=== PATIENT | male | born 1955 | race Two or more races ===

== ENCOUNTER 2016-04-18 10:10 | Emergency (ER) | payer OTHER ==
[2016-04-18 10:17] VITALS: BP 153/81; PULSE 75; TEMP 97.4; BMI 25.8
--- NOTE | 2016-04-18 11:32 | PDOC ---
History of Present Illness - General Chief Complaint: Cold Symptoms Stated Complaint: FLU, COUGH Time Seen by Provider: 04/18/16 11:17 History Source: Patient Exam Limitations: No Limitations - History of Present Illness Initial Comments: CHIEF COMPLAINT: 61 y/o afebrile male with PMH HTN, HLD c/o fever and body aches. HISTORY OF PRESENT ILLNESS: The patient states his symptoms started last night. He has a dry cough, nasal congestion, fever of 100.3 and chills, body aches. He states he vomited 1x this morning but has since eaten without vomiting. He denies TEJADA, neck pain, earache, sore throat, CP, SOB, abd pain, back pain, hematuria, dysuria. He took tylenol and robitussin for his symptoms yesterday. Unsure if he had the flu shot. Vital signs on arrival are within normal limits. REVIEW OF SYSTEMS: GENERAL/CONSTITUTIONAL: + fever/chills. +body aches. No weakness. No weight change. HEAD, EYES, EARS, NOSE AND THROAT: No change in vision. No ear pain or discharge. No sore throat. +nasal congestion CARDIOVASCULAR: No chest pain or shortness of breath. RESPIRATORY: +dry cough. No wheezing, or hemoptysis. GASTROINTESTINAL: 1 episode of vomiting. No nausea, diarrhea, abd pain. GENITOURINARY: No dysuria, frequency, or change in urination. MUSCULOSKELETAL: No joint or muscle swelling or pain. No neck or back pain. SKIN: No rash or easy bruising. NEUROLOGIC: No headache, vertigo, loss of consciousness, or loss of sensation. PHYSICAL EXAM: GENERAL: The patient is awake, alert, and fully oriented, in no acute distress. He is well appearing and ambulatory. Intermittent dry cough. HEAD: Normal with no signs of trauma. No TTP of sinuses. ENT: Pupils equal, round and reactive to light, extraocular movements intact, sclera anicteric, conjunctiva clear. Neck supple. Nasal congestion. Mucous membranes moist. LUNGS: Clear to auscultation bilaterally. Normal excursion. No respiratory distress or use of accessory muscles. CV: RRR, S1/S2, no MRG. Cap refill < 2 sec. ABDOMEN: Soft, non-distended, non-tender even to deep palpation, no hepatomegaly or splenomegaly, no masses. EXTREMITIES: Normal range of motion, no edema. NEUROLOGICAL: Normal speech, normal gait. CN II-XII grossly intact. PSYCH: Normal mood, normal affect. SKIN: Warm, dry, normal turgor, no rashes or lesions noted. Past History - Past Medical History Allergies/Adverse Reactions: Allergies Allergy/AdvReac Type Severity Reaction Status Date / Time No Known Allergies Allergy Verified 04/18/16 10:13 Home Medications: Ambulatory Orders Unobtainable [Unobtainable] 04/18/16 HTN: Yes Hypercholesterolemia: Yes - Psycho/Social/Smoking Cessation Hx Anxiety: No Suicidal Ideation: No Smoking History: Never smoked Have you smoked in the past 12 months: No Information on smoking cessation initiated: No Hx Alcohol Use: No Drug/Substance Use Hx: No Substance Use Type: None *Physical Exam - Vital Signs Last Vital Signs Temp Pulse Resp BP Pulse Ox 97.4 F L 75 18 153/81 100 04/18/16 10:14 04/18/16 10:14 04/18/16 10:14 04/18/16 10:14 04/18/16 10:14 Medical Decision Making - Medical Decision Making A/P: 61 y/o male with flu like symptoms. Plan is as follows: 1. INfluenza swab Influenza A&B - negative Informed the patient of the diagnosis of viral URI. Suggested he take tylenol every 4 hours for fever, drink plenty of fluids and get lots of rest, take robitussin for cough, eat a bland diet until symptoms improve and f/u with his PCP on Thursday. Suggested he return to the ER with any worsening or concerning symptoms The patient verbalizes understanding of all instructions, has no further questions and is awaiting discharge. *DC/Admit/Observation/Transfer Diagnosis at time of Disposition: Viral URI with cough - Discharge Dispostion Disposition: HOME Condition at time of disposition: Good - Referrals Referrals: Rose Aparicio [Primary Care Provider] - Call tomorrow - Patient Instructions Printed Discharge Instructions: DI for Viral Upper Respiratory Infection -- Adult, [place] Diet Additional Instructions: Discharge Instructions: -Take 650mg of Tylenol every 4 hours for fever -Take Robitussin for cough -Drink plenty of liquids and get lots of rest -Follow up with your doctor on Thursday -Return to the ER with any worsening or concerning symptoms Print Language: ECUADOREAN
== END 2016-04-18 12:14 | disposition home or self-care (01) ==
LOC: JERFT 10:10
DX: J06.9 Acute upper respiratory infection, unspecified (principal); R05 Cough; I10 Essential (primary) hypertension; E78.00 Pure hypercholesterolemia, unspecified
CPT/HCPCS: 87804; 99281-25

== ENCOUNTER 2016-09-18 09:29 | Observation (INO) | payer OTHER ==
--- NOTE | 2016-09-18 09:47 | PDOC ---
History of Present Illness - General History Source: Patient Exam Limitations: No Limitations - History of Present Illness Initial Comments: 09/18/16 10:12 The patient is a 61 year old, Croatian speaking, male with a significant past medical history of hypertension, and hyperlipidemia, presenting to the Emergency Department with intermittent chest pain for three days. The patient describes the pain as a burning in his chest, under his sternum, and states that it is nonradiating. The pain is not exacerbated by exertion, or meals, and the pain has no alleviating factors. He reports that he has experiencing this type of pain once before, and wore a machine to track his heart for one week, results were normal. The patient has not had a stress test. The patient denies history of heart problems. Patient diaphoresis, palpitations , and shortness of breath. Patient denies nausea, vomiting, and diarrhea. Patient denies fever, cough, and chills. PCP: Dr. Rose Spann ? <Carrol Menchaca - Last Filed: 09/18/16 12:05> <Sofi Mueller - Last Filed: 09/18/16 12:43> - General Chief Complaint: Chest Pain Stated Complaint: CHEST PAIN Time Seen by Provider: 09/18/16 09:47 Past History <Carrol Menchaca - Last Filed: 09/18/16 12:05> - Past Medical History HTN: Yes Hypercholesterolemia: Yes - Psycho/Social/Smoking Cessation Hx Anxiety: No Suicidal Ideation: No Smoking History: Never smoked Have you smoked in the past 12 months: No Information on smoking cessation initiated: No Hx Alcohol Use: No Drug/Substance Use Hx: No Substance Use Type: None <Sofi Mueller - Last Filed: 09/18/16 12:43> - Past Medical History Allergies/Adverse Reactions: Allergies Allergy/AdvReac Type Severity Reaction Status Date / Time No Known Allergies Allergy Verified 09/18/16 09:38 Home Medications: Ambulatory Orders Unobtainable [Unobtainable] 04/18/16 Review of Systems - Review of Systems Able to Perform ROS?: Yes Comments:: 09/18/16 10:13 CONSTITUTIONAL: Absent: fever, no chills, no fatigue EYES: Absent: visual changes ENT: Absent: ear pain, no sore throat CARDIOVASCULAR: Present: + nonradiating chest pain Absent: no palpitations RESPIRATORY: Absent: cough, no SOB GI: Absent: abdominal pain, no nausea, no vomiting, no constipation, no diarrhea GENITOURINARY: Absent: dysuria, no frequency, no hematuria MUSCULOSKELETAL: Absent: back pain, no arthralgia, no myalgia SKIN: Absent: rash NEURO: Absent: headache <Carrol Menchaca - Last Filed: 09/18/16 12:05> *Physical Exam - Vital Signs Last Vital Signs Temp Pulse Resp BP Pulse Ox 98.1 F 64 18 161/97 99 09/18/16 09:33 09/18/16 09:33 09/18/16 09:33 09/18/16 09:33 09/18/16 09:33 - Physical Exam Comments: 09/18/16 10:14 GENERAL: Well-appearing, well-nourished. No apparent distress. HEENT: Normocephalic, atraumatic. PERRL, EOM intact. CARDIOVASCULAR: Normal S1, S2. Regular rate and rhythm. PULMONARY: Clear to auscultation bilaterally. ABDOMEN: Soft, non-distended, non-tender. EXTREMITIES: Normal ROM in all four extremities. No gross deformities. SKIN: Warm, dry. No rash NEUROLOGICAL: No focal neurological deficits. <Carrol Menchaca - Last Filed: 09/18/16 12:05> - Vital Signs Last Vital Signs Temp Pulse Resp BP Pulse Ox 98.1 F 64 18 161/97 99 09/18/16 09:33 09/18/16 09:33 09/18/16 09:33 09/18/16 09:33 09/18/16 09:33 <Sofi Mueller - Last Filed: 09/18/16 12:43> Heart Score/ECG Review - History History: Slightly suspicious - Electrocardiogram EKG: Normal - Age Age: >/= 65 - Risk Factors Risk Factors Heart Score: Yes Hx Hypercholesterolemia, Yes Hx Hypertension Based on the list above the patient has:: 1-2 risk factors - Troponin Troponin: </= normal limit - Score Heart Score - Total: 3 <Sofi Mueller - Last Filed: 09/18/16 12:43> ED Treatment Course - LABORATORY CBC & Chemistry Diagram: 09/18/16 10:25 09/18/16 10:25 - RADIOLOGY Radiograph Interpretation: 09/18/16 12:05 Chest XRay As reviewed by Dr. Quang Arora IMPRESSION: No evidence of active pulmonary disease. <Carrol Menchaca - Last Filed: 09/18/16 12:05> - LABORATORY CBC & Chemistry Diagram: 09/18/16 10:25 09/18/16 10:25 <Sofi Mueller - Last Filed: 09/18/16 12:43> Medical Decision Making - Medical Decision Making 09/18/16 10:28 Pt presents to the ED complaining of three days of intermittent chest pain. Patient has multiple risk factors for cardiovascular disease. EKG shows no evidence of ischemia, but given multiple risk factors, will likely admit the patient to observation for serial cardiac enzymes. <Sofi Mueller - Last Filed: 09/18/16 12:43> *DC/Admit/Observation/Transfer - Attestations Scribe Attestion: 09/18/16 10:14 Documentation prepared by Carrol Menchaca, acting as medical pathology teacher for Sofi Mueller MD. <Carrol Menchaca - Last Filed: 09/18/16 12:05> - Discharge Dispostion Admit: Yes Decision to Admit order Date/Time: 09/18/16 12:43 <Sofi Mueller - Last Filed: 09/18/16 12:43> Diagnosis at time of Disposition: Chest pain Qualifiers: Chest pain type: other chest pain Qualified Code(s): R07.89 - Other chest pain ; R07.8 - Other chest pain - Discharge Dispostion Condition at time of disposition: Good
[2016-09-18] MEDS ORDERED: ASPIRIN 81 MG CHEWABLE TABLETS PO ONE (10:03)
[2016-09-18 10:47] LABS: BASOPHIL 0.5 % (0-2.0); EOSINOPHIL 5.4 % (0-4.5); MCH 27.3 pg (25.7-33.7); MEAN CELL VOLUME 82.7 fl (80-96); MEAN PLT VOLUME 7.2 fl (7.5-11.1); NEUTROPHILS 37.3 % (42.8-82.8); PLATELET COUNT 194 K/MM3 (134-434); WHITE BLOOD COUNT 5.4 K/mm3 (4.0-10.0)
[2016-09-18 11:37] LABS: ANION GAP 7 (8-16); CALCIUM 8.9 mg/dL (8.5-10.1); CO2 29 mmol/L (21-32); COCKROFT - GAULT 91.24; CREATININE 0.9 mg/dL (0.7-1.3); GLUCOSE,RANDOM 85 mg/dL (74-106); TOT PROT 7.9 g/dl (6.4-8.2)
[2016-09-18 11:38] LABS: ALBUMIN 3.6 g/dl (3.4-5.0); ALK PHOS 123 U/L (45-117); BILIRUBIN,TOTAL 0.6 mg/dL (0.2-1.0); SGOT/AST 23 U/L (15-37); SGPT/ALT 28 U/L (12-78); TROPONIN I < 0.02 ng/ml (0.00-0.05)
--- NOTE | 2016-09-18 14:03 | HP ---
Admitting History and Physical - Admission Chief Complaint: chest pain History of Present Illness: 61 year old male PMHx HTN, HLD, gout, heartburn was in his normal state of health until about 3 days ago when he experienced substernal chest pressure. Chest pain did not radiate, was intermittent, happened at rest, no association with food. No SOB, palpitations, n/v/d, diaphoresis. Had holter years ago, never had stress test. Was taken off statin by pcp months ago. History Source: Patient Limitations to Obtaining History: No Limitations - Past Medical History Cardiovascular: Yes: HTN, Hyperlipdemia Rheumatology: Yes: Gout - Past Surgical History Past Surgical History: Yes: None - Smoking History Smoking history: Never smoked Have you smoked in the past 12 months: No - Alcohol/Substance Use Hx Alcohol Use: No History of Substance Use: reports: None - Social History Usual Living Arrangement: Yes: Alone ADL: Independent History of Recent Travel: No Home Medications - Allergies Allergies/Adverse Reactions: Allergies Allergy/AdvReac Type Severity Reaction Status Date / Time No Known Allergies Allergy Verified 09/18/16 09:38 - Home Medications Home Medications: Ambulatory Orders Unobtainable [Unobtainable] 04/18/16 Family Disease History - Family Disease History Family History: Denies Review of Systems - Review of Systems Constitutional: reports: No Symptoms Eyes: reports: No Symptoms HENT: reports: No Symptoms Neck: reports: No Symptoms Cardiovascular: reports: Chest Pain Respiratory: reports: No Symptoms Gastrointestinal: reports: No Symptoms Genitourinary: reports: No Symptoms Breasts: reports: No Symptoms Reported Musculoskeletal: reports: No Symptoms Integumentary: reports: No Symptoms Neurological: reports: No Symptoms Endocrine: reports: No Symptoms Hematology/Lymphatic: reports: No Symptoms Psychiatric: reports: No Symptoms Physical Examination Vital Signs: Vital Signs Temperature 98.1 F 09/18/16 09:33 Pulse Rate 64 09/18/16 09:33 Respiratory Rate 18 09/18/16 09:33 Blood Pressure 161/97 09/18/16 09:33 O2 Sat by Pulse Oximetry (%) 99 09/18/16 09:33 Constitutional: Yes: Well Nourished, No Distress, Calm HENT: Yes: WNL, Atraumatic, Normocephalic Neck: Yes: WNL, Supple, Trachea Midline Cardiovascular: Yes: WNL, Regular Rate and Rhythm Respiratory: Yes: WNL, Regular, CTA Bilaterally Gastrointestinal: Yes: WNL, Normal Bowel Sounds, Soft Extremities: Yes: WNL Edema: No Peripheral Pulses WNL: Yes Labs: Laboratory Tests 09/18/16 09/18/16 09/18/16 10:25 10:25 10:25 WBC 5.4 RBC 5.55 Hgb 15.2 Hct 45.9 MCV 82.7 MCHC 33.0 RDW 14.0 Plt Count 194 MPV 7.2 L Neutrophils % 37.3 L Lymphocytes % 46.2 H Monocytes % 10.6 H Eosinophils % 5.4 H Basophils % 0.5 Sodium 139 Potassium 4.7 Chloride 103 Carbon Dioxide 29 Anion Gap 7 L BUN 12 Creatinine 0.9 Creat Clearance w eGFR > 60 Random Glucose 85 Calcium 8.9 Total Bilirubin 0.6 AST 23 ALT 28 Alkaline Phosphatase 123 H Creatine Kinase 182 Creatine Kinase Index 0.5 CK-MB (CK-2) 1.0 CK-MB (CK-2) Rel Index Cancelled Troponin I < 0.02 Total Protein 7.9 Albumin 3.6 Imaging - Results Chest X-ray: Report Reviewed, Image Reviewed EKG: Report Reviewed, Image Reviewed Problem List - Problems (1) Chest pain Assessment/Plan: -given risk factors, will admit to tele obs and r/o acs -trop negative, ekg nsr, no ischemic changes -check serial troponins -tele monitoring -stress test in AM -check fasting lipids and hba1c -d/c in am if stress negative htn-resume losartan hld-check fasting lipids dvt ppx-heparin subq Code(s): R07.9 - CHEST PAIN, UNSPECIFIED Qualifiers: Chest pain type: other chest pain Qualified Code(s): R07.89 - Other chest pain; R07.8 - Other chest pain
[2016-09-18 14:41] VITALS: BMI 25.0
[2016-09-18 16:21] LABS: TROPONIN I < 0.02 ng/ml (0.00-0.05)
[2016-09-18] MEDS: HEPARIN NA (PORCINE) 5,000 UNITS/ML 1ML VIAL SQ SCH (23:20)
[2016-09-19 07:29] LABS: BASOPHIL 0.6 % (0-2.0); EOSINOPHIL 3.5 % (0-4.5); MCH 27.7 pg (25.7-33.7); MCHC 33.6 g/dl (32.0-35.9); MEAN CELL VOLUME 82.3 fl (80-96); MEAN PLT VOLUME 7.8 fl (7.5-11.1); NEUTROPHILS 45.8 % (42.8-82.8); PLATELET COUNT 185 K/MM3 (134-434); RDW 13.9 % (11.9-15.9)
[2016-09-19 07:53] LABS: ANION GAP 9 (8-16); CALCIUM 8.4 mg/dL (8.5-10.1); CHOLESTEROL 193 mg/dL (50-200); CO2 25 mmol/L (21-32); CREATININE 0.9 mg/dL (0.7-1.3); GLUCOSE,RANDOM 81 mg/dL (74-106)
[2016-09-19 07:56] LABS: LDL CHOLESTEROL (ONLY SJRH) 140 mg/dL (5-100)
[2016-09-19] MEDS: HEPARIN NA (PORCINE) 5,000 UNITS/ML 1ML VIAL SQ SCH (09:19)
[2016-09-19] MEDS ORDERED: ASPIRIN COATED 81 MG TABLET.EC PO SCH (10:00)
[2016-09-19] MEDS ORDERED: LOSARTAN POTASSIUM 50 MG TABLET (FP) PO SCH (10:00)
--- NOTE | 2016-09-19 10:16 | TRE ---
Protocol Name : ROLLY Max Work Load (METS*10) : 101 Time In Exercise Phase : 00:08:00 Max. Systolic BP : 170 mmHg Max Diastolic BP : 90 mmHg Max Heart Rate : 141 BPM Max Predicted Heart Rate : 159 BPM Attending Physician : GIOVANNI MICHELE Reason For Termination : Target Heart Rate Achieved Reason for Test : ANGINA Stress Protocol : ROLLY Rest HR : 88 BPM PeakEx METs : 10.1 METS Recovery ECG Response (OLD) : Diagnosis : Patient completed 8:00 of a standard Rolly Protocol achieving a workload of 10 METS. The baseline heart rate of 71bpm anusha to a peak of 141bpm representing 88% of age predicted maximum. The resting blood pressure of 133/93 anusha to a peak of 170/90/ The test was stopped due achievement of the target heart rate. The baseline ECG showed NSR at 71bpm. No ischemic ST changes were seen during stress nor during recovery. The patinet remained asymptomatic. Conclusion: Negative/normal exercise treadmill stress test. Confirmed by GIOVANNI MICHELE MD ([id number]) on 09/19/2016 10:15:31 AM
[2016-09-19 14:55] VITALS: BP 110/64; PULSE 75; TEMP 99
--- NOTE | 2016-09-26 10:42 | EKG ---
Test Reason : Blood Pressure : / mmHG Vent. Rate : 066 BPM Atrial Rate : 066 BPM P-R Int : 150 ms QRS Dur : 102 ms QT Int : 410 ms P-R-T Axes : 062 038 054 degrees QTc Int : 429 ms NORMAL SINUS RHYTHM WITH SINUS ARRHYTHMIA MINIMAL VOLTAGE CRITERIA FOR LVH, MAY BE NORMAL VARIANT NO PREVIOUS ECGS AVAILABLE Confirmed by GIOVANNI MICHELE MD ([id number]) on 09/26/2016 10:41:52 AM Referred By: Confirmed By:GIOVANNI MICHELE MD
== END 2016-09-19 18:00 | disposition home or self-care (01) ==
LOC: JER 09:29 → JERBED 12:43 → J4W 21:34
PROVIDERS: ADMIT Internal Medicine; ATTEND Internal Medicine
PROC: 3E013GC Introduction of Other Therapeutic Substance into Subcutaneous Tissue, Percutaneous Approach (ICD-10-PCS; principal; 2016-09-18)
DX: R07.89 Other chest pain (principal); I10 Essential (primary) hypertension; E78.5 Hyperlipidemia, unspecified; M10.9 Gout, unspecified
CPT/HCPCS: 36415; 71020-TC; 80048; 80053; 80061; 82550; 82553; 83036; 83721; 84484; 85025; 93005; 93010; 93017; 93018; 99285-25; G0378; J1644